=== PATIENT | male | born 1950 | race Caucasian/White ===

== ENCOUNTER → 2021-06-13 01:50 | Outpatient (CLI) | payer MEDICARE, SELFPAY ==
[2021-06-13 17:52] LABS: SARS-CoV-2 RNA PCR Positive
== END ==
PROVIDERS: PCP Family Medicine; Visit Provider Physician Assistant
DX: U07.1 COVID-19 (principal)
CPT/HCPCS: C9803; U0003; U0005

== ENCOUNTER 2021-10-12 11:37 | Emergency (ER) | payer MEDICARE, SELFPAY ==
--- NOTE | ~2021-10-12 | XR_ITS ---
EXAMINATION: XR chest 2V DATE: 10/12/2021 13:06 INDICATION: 4 days of productive cough TECHNIQUE: PA and lateral views of the chest were obtained. COMPARISON: Chest radiograph dated 04/07/2017 FINDINGS: Small calcified nodules in the left midlung zone consistent with old granulomatous disease. No focal airspace opacities, pulmonary edema, pleural effusion or pneumothorax. The cardiomediastinal silhouet te is normal. Old posterolateral right eighth rib fracture. Mild to moderate thoracic spondylosis. IMPRESSION: 1. No acute cardiopulmonary disease. Reviewed, dictated and finalized at location A. [facility]
[2021-10-12 12:09] VITALS: BP 121/70; PULSE 99; RESP 20; TEMP 37.5; O2SAT 96
--- NOTE | 2021-10-12 12:50 | ED.URI ---
HPI - URI/Sore Throat General Chief Complaint: Upper Respiratory Infection Stated Complaint: Cough,Runny Nose,Congestion Time Seen by Provider: 10/12/21 12:50 Source: patient Mode of arrival: ambulatory Limitations: no limitations History of Present Illness HPI Narrative: Carmine Ford 71-year-old male who is vaccinated for Covid but has not received his booster who called his doctor today to be seen for a cough and doctor told him to get Covid tested. He has a PMH of high cholesterol, and, BPH and erectile dysfunction. He told nurse that he has cough and runny nose in addition for the last 6 days Related Data Allergies Allergy/AdvReac Type Severity Reaction Status Date / Time ranitidine Allergy Intermediate UPSET Verified 10/12/21 12:17 STOMACH Review of Systems Review of Systems: CONSTITUTIONAL: Denies fever, chills, sweats. EYES: Denies visual changes, redness, discharge. ENT: Has rhinorrhea, congestion, sore throat, otalgia. CARDIOVASCULAR: Denies chest pain, palpitations, edema. RESPIRATORY: Denies dyspnea, wheezing, has cough GASTROINTESTINAL: Denies abdominal pain, nausea, vomiting, diarrhea. GENITOURINARY: Denies dysuria, hematuria, abnormal discharge SKIN: Denies rash or itching. NEUROLOGIC: Denies numbness, or focal weakness. PSYCHIATRIC: Denies anxiety or depression. PMFSH Past Medical History Medical History BPH (benign prostatic hyperplasia) Essential (primary) hypertension Mixed hyperlipidemia Surgical History Surgical History H/O splenectomy H/O umbilical hernia repair 1993 and 2017 Family History Family History Father Patient's father is , Onset Age: 62 Family history of cardiovascular disease Acute myocardial infarction, Onset Age: 62 Social History Social History (Updated 10/12/21 @ 12:59 by Neelima Pitts CNP) Smoking status: Never smoker Alcohol intake: current Comments At time of signature, I agree with nursing past medical, surgical, social and family history. There is no relevant family history pertinent to the presenting complaint. Exam Narrative: GENERAL: This is a well-nourished, well-developed patient, in mild distress. HEAD: normocephalic, atraumatic. EYES: PERRL. Sclera clear/white. Vision is grossly intact. EARS: External ears normal, auditory canals clear and without drainage, TMs normal without perforation. Hearing grossly intact. NOSE: External nose normal without nasal discharge, nares without redness, no rhinorrhea. THROAT: Mucous membranes moist, posterior pharynx mild erythema has cough NECK: Neck supple, non-tender CARDIOVASCULAR: Regular rate and rhythm without murmurs, gallops, or rubs. RESPIRATORY: Diminished to auscultation. Breath sounds equal bilaterally. Mild wheezes, rales rales, or rhonchi. GASTROINTESTINAL: Abdomen soft, non-tender, SKIN: warm, intact with no suspicious lesions or rash, good texture and turgor. NEURO: awake, alert, and oriented to person, place and time. There were no obvious focal neurologic abnormalities. Steady gait EXTREMITIES: Normal range of motion. BACK: Nontender without deformity Course Course Emergency Course: Patient here with cough and congestion talked to the primary care doctor who told him to come in for Covid test after he taken a rapid test at home Rapid Covid and flu negative here Chest x-ray done because sounds mildly wheezy in all 4 quadrants denies COPD or [id number] read as no acute cardiopulmonary disease no pulmonary edema no pleural effusion or pneumothorax Started on prednisone and Tessalon Perles Vital Signs Vital signs: Vital Signs Temperature 99.5 F 10/12/21 12:09 Pulse Rate 99 10/12/21 12:09 Respiratory Rate 20 10/12/21 12:09 Blood Pressure 121/70 10/12/21 12:09 Pulse Oximetry 96 10/12/21 12:09
== END 2021-10-12 13:34 | disposition home or self-care (01) ==
PROVIDERS: Emergency Provider Nurse Practitioner; PCP Family Medicine
DX: J40 Bronchitis, not specified as acute or chronic (principal); I10 Essential (primary) hypertension; E78.2 Mixed hyperlipidemia; Z20.822 Contact with and (suspected) exposure to COVID-19
CPT/HCPCS: 71046; 87426; 87804; 99213; C9803; G0463

== ENCOUNTER 2024-02-07 08:27 | Outpatient (CLI) | payer MEDICARE, SELFPAY ==
--- NOTE | ~2024-02-07 | CT_ITS ---
CT of the Abdomen and Pelvis: Indication: Hematuria Technique: 2.5 mm axial scans were obtained through the abdomen and pelvis prior to and following in travenous administration of 130 cc of Omnipaque 350. Dose reduction technique was used on this scan b y utilizing automated exposure control and iterative reconstruction technique. The dose-length produc t (DLP) was 2228.99 mGy-cm. Findings: Scans through the lung bases are unremarkable. The liver, pancreas, gallbladder, and adrenal glands are within normal limits. Evidence of splenosis noted. Bilateral renal cysts are present. Suspected enhancing mass within the left upper pole renal c ollecting system (series 6 images 55-59), with asymmetric focal prominence of the left upper pole davi al collecting system and apparent postcontrast enhancement. There are atherosclerotic calcifications of the aorta. No lymphadenopathy. No bowel obstruction or bowel wall thickening. There is no evidence to suggest acute appendicitis. Images through the pelvis were performed. Urinary bladder unremarkable. Prostate gland mildly enlarge d. No ascites. Impression: Suspected soft tissue mass within the left upper pole renal collecting system, which could reflect ne oplastic disease. Pre and postcontrast MR and/or retrograde pyelogram should be considered for furthe r evaluation. Multiple bilateral renal cysts. Reviewed, dictated and finalized at location . Impression: Suspected soft tissue mass within the left upper pole renal collecting system, which could reflect neoplastic disease. Pre and postcontrast MR and/or retrogra de pyelogram should be considered for further evaluation. Multiple bilateral renal cysts.
[2024-02-07 08:46] LABS: Estimated Glomerular Filt Rate > 60
== END 2024-02-07 08:28 ==
LOC: MICIMG 08:28
PROVIDERS: PCP Urology; Visit Provider Urology
DX: R31.0 Gross hematuria (principal); N28.1 Cyst of kidney, acquired
CPT/HCPCS: 74178; Q9967